=== PATIENT | female | born 1960 ===

== ENCOUNTER 2016-09-24 10:46 | Day surgery (SDC) | payer OTHER ==
[2015-05-19 11:27] VITALS: BMI 19.3
[2016-09-24] MEDS ORDERED: Lactated Ringer's 500 ML IV ONE (11:32)
[2016-09-24 11:50] VITALS: TEMP 97
[2016-09-24 12:55] VITALS: O2SAT 99
[2016-09-24 12:56] VITALS: PULSE 77; RESP 16
[2016-09-24 12:57] VITALS: BP 100/50
== END 2016-09-24 13:49 | disposition home or self-care (01) ==
LOC: H.ENDO 10:46
PROVIDERS: ATTEND Internal Medicine Gastroenterology
DX: Z12.11 Encounter for screening for malignant neoplasm of colon (principal); I10 Essential (primary) hypertension; K64.8 Other hemorrhoids; K44.9 Diaphragmatic hernia without obstruction or gangrene; K31.9 Disease of stomach and duodenum, unspecified; K30 Functional dyspepsia

== ENCOUNTER → 2018-06-02 | Day surgery (SDC) | payer MEDICAID ==
[~2018-06-02] MED LIST: Propofol 10 mg/ml Inj (20 ML) ONE
[2018-06-02 10:21] VITALS: BMI 27.1
[2018-06-02 10:35] VITALS: O2SAT 100
[2018-06-02 13:29] VITALS: BP 122/70; PULSE 82; RESP 19; TEMP 97.1
== END | disposition home or self-care (01) ==
LOC: H.ENDO 08:53
PROVIDERS: ATTEND Internal Medicine Gastroenterology
DX: K31.89 Other diseases of stomach and duodenum (principal); K29.80 Duodenitis without bleeding; J45.909 Unspecified asthma, uncomplicated; E78.5 Hyperlipidemia, unspecified; K21.9 Gastro-esophageal reflux disease without esophagitis; I10 Essential (primary) hypertension; F32.9 Major depressive disorder, single episode, unspecified; K29.50 Unspecified chronic gastritis without bleeding
CPT/HCPCS: 43239; 88305; J2001; J2704